=== PATIENT | female | born 1980 | race African-American/Black ===

== ENCOUNTER 2018-11-16 10:40 | Emergency (ER) | payer OTHER ==
--- NOTE | 2018-11-16 12:46 | ED ---
Skin/Abscess/FB HPI - General Chief complaint: Skin/Abscess/Foreign Body Stated complaint: Infection Time Seen by Provider: 11/16/18 12:26 Source: patient, RN notes reviewed Mode of arrival: ambulatory Limitations: no limitations - History of Present Illness Initial comments: 38-year-old female presents emergency from chief complaint rash on her face. Patient has been trying to treat this at home with multiple [id number] medications, home remedies. Patient states that there is small to large size pimples. Patient states they were painful and initially started but has improved. Patient denies any history of skin infections including MRSA or VRE. Patient offers no fevers or chills. Patient offers no other associated complaints. - Related Data Previous Rx's Medication Instructions Recorded Benzoyl Peroxide [Panoxyl] 1 applic TOPICAL BID #10 gm 11/16/18 Cephalexin [Keflex] 500 mg PO Q6HR #40 cap 11/16/18 Allergies Allergy/AdvReac Type Severity Reaction Status Date / Time No Known Allergies Allergy Verified 11/16/18 11:51 Review of Systems ROS Statement: Those systems with pertinent positive or pertinent negative responses have been documented in the HPI. ROS Other: All systems not noted in ROS Statement are negative. Past Medical History Past Medical History: Hypertension History of Any Multi-Drug Resistant Organisms: None Reported Past Surgical History: No Surgical Hx Reported Past Psychological History: No Psychological Hx Reported Smoking Status: Current every day smoker Past Alcohol Use History: Occasional Past Drug Use History: Marijuana General Exam Limitations: no limitations General appearance: alert, in no apparent distress Head exam: Present: atraumatic, normocephalic, normal inspection Eye exam: Present: normal appearance, PERRL, EOMI. Absent: scleral icterus, conjunctival injection, periorbital swelling ENT exam: Present: normal exam, normal oropharynx, mucous membranes moist, TM's normal bilaterally Neck exam: Present: normal inspection. Absent: tenderness, meningismus, lymphadenopathy Respiratory exam: Present: normal lung sounds bilaterally. Absent: respiratory distress, wheezes, rales, rhonchi, stridor Cardiovascular Exam: Present: regular rate, normal rhythm, normal heart sounds. Absent: systolic murmur, diastolic murmur, rubs, gallop, clicks Skin exam: Present: warm, dry, intact, normal color, rash (Diffuse small to large ascites papule and pustules noted on the forehead, cheek region) Course Vital Signs 11/16/18 11:48 Temperature 98.2 F Pulse Rate 62 Respiratory 18 Rate Blood Pressure 162/71 O2 Sat by Pulse 100 Oximetry Medical Decision Making - Medical Decision Making 38-year-old female presented for rash her face. This is more consistent with cystic acne. Patient provided Benzoyl peroxide, prescription of Keflex as she states that she may have symptoms of some to doxycycline. Patient will be followed up with dermatology return for any worsening symptoms. Disposition Clinical Impression: Cystic acne Disposition: HOME SELF-CARE Condition: Stable Instructions (If sedation given, give patient instructions): Benzoyl Peroxide (On the skin) Additional Instructions: Please return to the Emergency Department if symptoms worsen or any other concerns. Prescriptions: Cephalexin [Keflex] 500 mg PO Q6HR #40 cap Benzoyl Peroxide [Panoxyl] 1 applic TOPICAL BID #10 gm Is patient prescribed a controlled substance at d/c from ED?: No Referrals: Nonstaff,Physician [Primary Care Provider] - 1-2 days Time of Disposition: 12:45
[2018-11-16 12:57] VITALS: BP 165/78; PULSE 67; RESP 16; TEMP 98.6
== END 2018-11-16 12:56 | disposition home or self-care (01) ==
LOC: EC 10:40
DX: L70.0 Acne vulgaris (principal); F17.200 Nicotine dependence, unspecified, uncomplicated
CPT/HCPCS: 99282

== ENCOUNTER 2020-08-18 12:16 | Observation (INO) | payer OTHER ==
--- NOTE | 2020-08-18 13:35 | ED ---
General Adult HPI - General Source: patient, RN notes reviewed Mode of arrival: ambulatory Limitations: no limitations <Salo Woods - Last Filed: 08/18/20 16:48> <Shreya Bonner - Last Filed: 08/21/20 14:14> - General Chief complaint: Vaginal Bleeding Stated complaint: Feeling Faint Time Seen by Provider: 08/18/20 12:21 - History of Present Illness Initial comments: 39-year-old female with a past medical history of anemia, hypertension presents to the emergency room for vaginal bleeding. Patient states she has had vaginal bleeding times one week. Patient states this is heavier than her normal.. States this has happened several times in the past. One time she did require a blood transfusion. Patient states that at work today she felt a little lightheaded and was concerned it could be because of the bleeding. Patient denies syncopal episodes. She is feeling well at this time although does feel a little fatigued. States the bleeding has been slowing down throughout the week.Patient has no other complaints at this time including shortness of breath, chest pain, abdominal pain, nausea or vomiting, headache, or visual changes. (Salo Woods) - Related Data Home Medications Medication Instructions Recorded Confirmed Losartan [Cozaar] 25 mg PO DAILY 08/18/20 08/18/20 Allergies Allergy/AdvReac Type Severity Reaction Status Date / Time No Known Allergies Allergy Verified 08/18/20 17:01 Review of Systems ROS Other: All systems not noted in ROS Statement are negative. <Salo Woods - Last Filed: 08/18/20 16:48> ROS Other: All systems not noted in ROS Statement are negative. <Shreya Bonner - Last Filed: 08/21/20 14:14> ROS Statement: Those systems with pertinent positive or pertinent negative responses have been documented in the HPI. Past Medical History Past Medical History: Hypertension Additional Past Medical History / Comment(s): anemia History of Any Multi-Drug Resistant Organisms: None Reported Past Surgical History: No Surgical Hx Reported Past Psychological History: No Psychological Hx Reported Smoking Status: Current every day smoker Past Alcohol Use History: Occasional Past Drug Use History: Marijuana <Salo Woods - Last Filed: 08/18/20 16:48> General Exam Limitations: no limitations General appearance: alert, in no apparent distress Head exam: Present: atraumatic, normocephalic, normal inspection Eye exam: Present: normal appearance, PERRL, EOMI. Absent: scleral icterus, conjunctival injection, periorbital swelling ENT exam: Present: normal exam, mucous membranes moist Neck exam: Present: normal inspection, full ROM. Absent: tenderness, meningismus, lymphadenopathy Respiratory exam: Present: normal lung sounds bilaterally. Absent: respiratory distress, wheezes, rales, rhonchi, stridor Cardiovascular Exam: Present: regular rate, normal rhythm, normal heart sounds. Absent: systolic murmur, diastolic murmur, rubs, gallop, clicks GI/Abdominal exam: Present: soft, normal bowel sounds. Absent: distended, tenderness, guarding, rebound, rigid External exam: Present: normal external exam. Absent: erythema, swelling, lesions, lacerations, ecchymosis Speculum exam: Present: vaginal bleeding (Small clot noted. minimal vaginal bleeding on time of exam.). Absent: normal speculum exam, erythema, vaginal discharge, cervical discharge, foreign body, tissue, laceration By manual exam: Present: normal by manual exam. Absent: cervical motion tenderness, adnexal tenderness, adnexal mass, uterine enlargement, uterine tenderness <Salo Woods P - Last Filed: 08/18/20 16:48> Course Vital Signs 08/18/20 08/18/20 08/18/20 12:18 15:38 16:12 Temperature 97.9 F 97.8 F Pulse Rate 69 84 77 Respiratory 18 18 16 Rate Blood Pressure 149/78 153/77 159/84 O2 Sat by Pulse 100 90 L 100 Oximetry 08/18/20 08/18/20 16:22 16:52 Temperature 98.7 F 98.7 F Pulse Rate 68 70 Respiratory 16 16 Rate Blood Pressure 168/107 181/99 O2 Sat by Pulse 100 100 Oximetry Medical Decision Making - Lab Data Result diagrams: 08/18/20 14:30 08/18/20 13:32 <Salo Woods - Last Filed: 08/18/20 16:48> - Lab Data Result diagrams: 08/19/20 00:45 08/18/20 13:32 <Shreya Bonner - Last Filed: 08/21/20 14:14> - Medical Decision Making Vitals are stable. Patient did have mild vaginal bleeding on exam however no significant hemorrhage. CBC did reveal hemoglobin which was significantly low at 5.3. No baseline to compare to. Platelet count was not available due to agglutination. I did call lab and they're going to try to pull this from a different blood tube. CMP unremarkable. Urinalysis does show greater than 182 red and white cells. Culture pending. Patient is afebrile with a normal white blood cell count. I suspect white cells are reactive to the red cells however we will give patient a dose of Rocephin until culture does results. 2 units of blood were ordered for patient's significant anemia. Case was discussed with Dr. 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 Recommends repeat CBC about 6 hours after infusion. Recommends low maintenance fluids to keep line open. Patient did have a foul odor on physical exam from the vaginal area. She recommends giving a dose of Flagyl as this could be BV. Trichomonas negative, gonorrhea chlamydia pending. Ultrasound was ordered which shows a simple dominant cyst of the right ovary. There is a 4.9 x 2.3 cm left adnexal you elongated cystic area that could be cyst or hydrosalpinx. No significant pain. Endometrium within normal limits. (Salo Woods) I was available for consultation in the emergency department. The history and physical exam were done by the midlevel provider. I was consulted for this patients care. I reviewed the case with the midlevel provider and based on their presentation of the patient, I agree with the assessment, medical decision making and plan of care as documented. Chart was dictated using [employer] dictation software. Attempts were made to correct any dictation errors however some typographical errors may persist. Patient was seen during a national state of emergency due to the Covid-19 pandemic. (Shreya Bonner) - Lab Data Lab Results 08/18/20 08/18/20 08/18/20 Range/Units 12:58 13:00 13:00 WBC (3.8-10.6) k/uL RBC (3.80-5.40) m/uL Hgb (11.4-16.0) gm/dL Hct (34.0-46.0) % MCV (80.0-100.0) fL MCH (25.0-35.0) pg MCHC (31.0-37.0) g/dL RDW (11.5-15.5) % Plt Count (150-450) k/uL MPV Neutrophils % (Manual) % Lymphocytes % (Manual) % Monocytes % (Manual) % Eosinophils % (Manual) % Neutrophils # (Manual) (1.3-7.7) k/uL Lymphocytes # (Manual) (1.0-4.8) k/uL Monocytes # (Manual) (0-1.0) k/uL Eosinophils # (Manual) (0-0.7) k/uL Nucleated RBCs (0-0) /100 WBC Manual Slide Review Toxic Vacuolation Polychromasia Hypochromasia Anisocytosis Microcytosis Target Cells Sodium (137-145) mmol/L Potassium (3.5-5.1) mmol/L Chloride (98-107) mmol/L Carbon Dioxide (22-30) mmol/L Anion Gap mmol/L BUN (7-17) mg/dL Creatinine (0.52-1.04) mg/dL Est GFR (CKD-EPI)AfAm (>60 ml/min/1.73 sqM) Est GFR (CKD-EPI)NonAf (>60 ml/min/1.73 sqM) Glucose (74-99) mg/dL Calcium (8.4-10.2) mg/dL Total Bilirubin (0.2-1.3) mg/dL AST (14-36) U/L ALT (4-34) U/L Alkaline Phosphatase (38-126) U/L Total Protein (6.3-8.2) g/dL Albumin (3.5-5.0) g/dL Urine Color Dark Red Urine Appearance Bloody H (Clear) Urine RBC >182 H (0-5) /hpf Urine WBC >182 H (0-5) /hpf Hyaline Casts 199 H (0-2) /lpf Urine HCG, Qual Not Detected (Not Detectd) Chlamydia Source Chlamydia DNA (PCR) (Neg,Equiv) N. gonorrhoeae Source N.gonorrhoeae DNA Probe (Neg,Equiv) Trichomonas Ag (Rapid) (Negative) Blood Type Blood Type Confirm A Positive Blood Type Recheck Bld Type Recheck Status Antibody Screen Crossmatch Spec Expiration Date 08/18/20 08/18/20 08/18/20 Range/Units 13:00 13:00 13:32 WBC (3.8-10.6) k/uL RBC (3.80-5.40) m/uL Hgb (11.4-16.0) gm/dL Hct (34.0-46.0) % MCV (80.0-100.0) fL MCH (25.0-35.0) pg MCHC (31.0-37.0) g/dL RDW (11.5-15.5) % Plt Count (150-450) k/uL MPV Neutrophils % (Manual) % Lymphocytes % (Manual) % Monocytes % (Manual) % Eosinophils % (Manual) % Neutrophils # (Manual) (1.3-7.7) k/uL Lymphocytes # (Manual) (1.0-4.8) k/uL Monocytes # (Manual) (0-1.0) k/uL Eosinophils # (Manual) (0-0.7) k/uL Nucleated RBCs (0-0) /100 WBC Manual Slide Review Toxic Vacuolation Polychromasia Hypochromasia Anisocytosis Microcytosis Target Cells Sodium 138 (137-145) mmol/L Potassium 3.4 L (3.5-5.1) mmol/L Chloride 103 (98-107) mmol/L Carbon Dioxide 22 (22-30) mmol/L Anion Gap 13 mmol/L BUN 11 (7-17) mg/dL Creatinine 0.77 (0.52-1.04) mg/dL Est GFR (CKD-EPI)AfAm >90 (>60 ml/min/1.73 sqM) Est GFR (CKD-EPI)NonAf >90 (>60 ml/min/1.73 sqM) Glucose 90 (74-99) mg/dL Calcium 9.4 (8.4-10.2) mg/dL Total Bilirubin 0.6 (0.2-1.3) mg/dL AST 50 H (14-36) U/L ALT 13 (4-34) U/L Alkaline Phosphatase 70 (38-126) U/L Total Protein 7.3 (6.3-8.2) g/dL Albumin 4.5 (3.5-5.0) g/dL Urine Color Urine Appearance (Clear) Urine RBC (0-5) /hpf Urine WBC (0-5) /hpf Hyaline Casts (0-2) /lpf Urine HCG, Qual (Not Detectd) Chlamydia Source Vagina Chlamydia DNA (PCR) Negative (Neg,Equiv) N. gonorrhoeae Source Vagina N.gonorrhoeae DNA Probe Negative (Neg,Equiv) Trichomonas Ag (Rapid) Negative (Negative) Blood Type Blood Type Confirm Blood Type Recheck Bld Type Recheck Status Antibody Screen Crossmatch Spec Expiration Date 08/18/20 08/18/20 08/18/20 Range/Units 13:59 14:30 14:30 WBC 6.5 (3.8-10.6) k/uL RBC 3.71 L (3.80-5.40) m/uL Hgb 5.3 L* (11.4-16.0) gm/dL Hct 20.8 L (34.0-46.0) % MCV 56.0 L (80.0-100.0) fL MCH 14.2 L (25.0-35.0) pg MCHC 25.4 L (31.0-37.0) g/dL RDW 18.3 H (11.5-15.5) % Plt Count 339 (150-450) k/uL MPV 6.9 9.9 Neutrophils % (Manual) 73 % Lymphocytes % (Manual) 19 % Monocytes % (Manual) 6 % Eosinophils % (Manual) 2 % Neutrophils # (Manual) 4.75 (1.3-7.7) k/uL Lymphocytes # (Manual) 1.24 (1.0-4.8) k/uL Monocytes # (Manual) 0.39 (0-1.0) k/uL Eosinophils # (Manual) 0.13 (0-0.7) k/uL Nucleated RBCs 1 H (0-0) /100 WBC Manual Slide Review Performed Toxic Vacuolation Present Polychromasia Present Hypochromasia Marked Anisocytosis Slight Microcytosis Marked Target Cells Present Sodium (137-145) mmol/L Potassium (3.5-5.1) mmol/L Chloride (98-107) mmol/L Carbon Dioxide (22-30) mmol/L Anion Gap mmol/L BUN (7-17) mg/dL Creatinine (0.52-1.04) mg/dL Est GFR (CKD-EPI)AfAm (>60 ml/min/1.73 sqM) Est GFR (CKD-EPI)NonAf (>60 ml/min/1.73 sqM) Glucose (74-99) mg/dL Calcium (8.4-10.2) mg/dL Total Bilirubin (0.2-1.3) mg/dL AST (14-36) U/L ALT (4-34) U/L Alkaline Phosphatase (38-126) U/L Total Protein (6.3-8.2) g/dL Albumin (3.5-5.0) g/dL Urine Color Urine Appearance (Clear) Urine RBC (0-5) /hpf Urine WBC (0-5) /hpf Hyaline Casts (0-2) /lpf Urine HCG, Qual (Not Detectd) Chlamydia Source Chlamydia DNA (PCR) (Neg,Equiv) N. gonorrhoeae Source N.gonorrhoeae DNA Probe (Neg,Equiv) Trichomonas Ag (Rapid) (Negative) Blood Type A Positive Blood Type Confirm Blood Type Recheck No Previous Record Bld Type Recheck Status CABO Indicated Antibody Screen NEGATIVE Crossmatch See Detail Spec Expiration Date 08/21/20202329 Disposition Is patient prescribed a controlled substance at d/c from ED?: No Time of Disposition: 16:51 <Salo Woods P - Last Filed: 08/18/20 16:48> <Shreya Bonner - Last Filed: 08/21/20 14:14> Clinical Impression: Dysfunctional uterine bleeding, Anemia Disposition: ADMITTED IP TO THIS HOSP Condition: Good
[2020-08-18 13:48] LABS: ALT 13 U/L (4-34); AST 50 U/L (14-36); African American GFR (CKD) >90 (>60 ml/min/1.73 sqM); Albumin 4.5 g/dL (3.5-5.0); Alkaline Phosphatase 70 U/L (38-126); Anion Gap 13 mmol/L; Blood Urea Nitrogen 11 mg/dL (7-17); Calcium 9.4 mg/dL (8.4-10.2); Carbon Dioxide 22 mmol/L (22-30); Chloride 103 mmol/L (98-107); Glucose 90 mg/dL (74-99); Non-African American GFR(CKD) >90 (>60 ml/min/1.73 sqM); Potassium 3.4 mmol/L (3.5-5.1); Sodium 138 mmol/L (137-145); Total Bilirubin 0.6 mg/dL (0.2-1.3); Total Protein 7.3 g/dL (6.3-8.2)
[2020-08-18 13:54] LABS: Hyaline Casts,Urine 199 /lpf (0-2); RBC,Urine >182 /hpf (0-5); WBC,Urine >182 /hpf (0-5)
[2020-08-18 13:56] LABS: Appearance,Urine Bloody (Clear); Color,Urine Dark Red
[2020-08-18 14:07] LABS: Anisocytosis Slight; HCT 20.8 % (34.0-46.0); Hypochromasia Marked; MCH 14.2 pg (25.0-35.0); MCHC 25.4 g/dL (31.0-37.0); Mean Platelet Volume 6.9; Microcytosis Marked; RBC 3.71 m/uL (3.80-5.40); RDW 18.3 % (11.5-15.5)
[2020-08-18 14:09] LABS: HGB 5.3 gm/dL (11.4-16.0)
[2020-08-18 14:57] LABS: Eosinophils # (M) 0.13 k/uL (0-0.7); Neutrophils % (M) 73 %; Nucleated Red Blood Cells 1 /100 WBC (0-0); Total Cells Counted 200
[2020-08-18 14:58] LABS: Lymphocytes # (M) 1.24 k/uL (1.0-4.8); Monocytes # (M) 0.39 k/uL (0-1.0); Neutrophils # (M) 4.75 k/uL (1.3-7.7); Toxic Vacuolation Present; WBC 6.5 k/uL (3.8-10.6)
[2020-08-18 14:59] LABS: Polychromasia Present; Target Cells Present
[2020-08-18 16:13] VITALS: RESP 16
--- NOTE | 2020-08-18 16:16 | US ---
EXAMINATION TYPE: US transvaginal DATE OF EXAM: 08/18/2020 COMPARISON: NONE CLINICAL HISTORY: bleedimg, anemia. TECHNIQUE: Transvaginal (TV). Date of LMP: 08/13/2020 EXAM MEASUREMENTS: Uterus: 8.6 x 4.8 x 6.2 cm Endometrial Stripe: 0.9 cm Right Ovary: 3.4 x 2.0 x 2.7 cm Left Ovary: 4.9 x 2.3 x 3.1 cm 1. Uterus: Anteverted wnl 2. Endometrium: wnl 3. Right Ovary: cyst measures 2.8 x 1.8 x 2.3 cm 4. Left Ovary: Cystic structure is presumed to be ovary, there appears to be an ovarian rind with v ascular flow. Spectral, color and waveform doppler imaging shows good arterial and venous flow within the ovaries ; there is no evidence for ovarian torsion. 5. Bilateral Adnexa: wnl 6. Posterior cul-de-sac: no free fluid IMPRESSION: There is simple dominant cyst on the right ovary. There is 4.9 x 2.3 cm left adnexal elongated cystic area. This could be ovarian cyst or hydrosalpinx. No solid adnexal mass. No evidence of ovarian tors ion.
[2020-08-18] MEDS ORDERED: SODIUM CHLORIDE 0.9% 1,000 ML IV STA (16:30)
[2020-08-18 16:45] LABS: Mean Platelet Volume 9.9; Platelet Count 339 k/uL (150-450)
[2020-08-18] MEDS ORDERED: metroNIDAZOLE-NS PMX 500 MG in SALINE 1 100ML.BAG IVPB STA (16:47)
[2020-08-18] MEDS ORDERED: cefTRIAXone IN SWFI 1,000 MG/10 ML SYRINGE IVP STA (16:50)
[2020-08-18] MEDS ORDERED: NALOXONE 0.4 MG/ML 1 ML VIAL IV PRN (16:53)
[2020-08-18] MEDS ORDERED: SODIUM CHLORIDE 0.9% 1,000 ML IV SCH (17:00)
[2020-08-19 03:02] LABS: Anisocytosis Marked; Basophils # (A) 0.1 k/uL (0-0.2); Basophils % (A) 1 %; Eosinophils # (A) 0.1 k/uL (0-0.7); Eosinophils % (A) 2 %; HCT 30.4 % (34.0-46.0); Hypochromasia Marked; Lymphocytes # (A) 1.8 k/uL (1.0-4.8); Lymphocytes % (A) 20 %; MCH 19.5 pg (25.0-35.0); MCHC 29.1 g/dL (31.0-37.0); Mean Platelet Volume 8.5; Microcytosis Marked; Monocytes # (A) 0.9 k/uL (0-1.0); Monocytes % (A) 9 %; Neutrophils # (A) 6.1 k/uL (1.3-7.7); Neutrophils % (A) 66 %; Platelet Count 238 k/uL (150-450); Poikilocytosis Marked; RBC 4.55 m/uL (3.80-5.40); WBC 9.2 k/uL (3.8-10.6)
[2020-08-19 03:08] LABS: HGB 8.9 gm/dL (11.4-16.0)
[2020-08-19 03:09] LABS: MCV 66.9 fL (80.0-100.0)
[2020-08-19 04:29] VITALS: PULSE 49; TEMP 97.7
[2020-08-19 04:34] VITALS: BP 178/87
--- NOTE | 2020-08-19 08:41 | P.HPOB ---
History of Present Illness H&P Date: 08/19/20 Chief Complaint: Menorrhagia, severe anemia This is a 39-year-old non patient that presented to the emergency department last evening with complaints of heavy menstrual bleeding with clots. Patient has a known history of anemia with a prior transfusion Abundio for years ago. On initial CBC patient was noted to be significantly anemic with a hemoglobin of 5.3. Patient was given 2 units of packed red blood cells, and admitted for observation. Patient states she has a history of heavier menstrual cycles. Menstrual cycles are noted to be every 30 days lasting proximal laced 7 days. This last period started about 7 days ago. She states she was about a week late and then started with clots. Patient does have a past medical history of hypertension for which she is on medication. Patient denies surgical history. This a.m. patient states her bleeding has slowed significantly and she is feeling much improved. Patient denies dizziness lightheadedness she is able to ambulate to the bathroom without difficulty. Review of Systems Constitutional: Reports as per HPI, Reports fatigue, Denies chills, Denies fever Ears, nose, mouth and throat: Denies headache Cardiovascular: Denies leg edema Respiratory: Denies dyspnea Gastrointestinal: Denies constipation, Denies diarrhea, Denies nausea, Denies vomiting Genitourinary: Reports abnormal vaginal bleeding, Reports menorrhagia, Denies dysmenorrhea, Denies Menstruation: Reports as per HPI Past Medical History Past Medical History: Hypertension Additional Past Medical History / Comment(s): anemia History of Any Multi-Drug Resistant Organisms: None Reported Past Surgical History: No Surgical Hx Reported Past Anesthesia/Blood Transfusion Reactions: No Reported Reaction Past Psychological History: No Psychological Hx Reported Smoking Status: Current every day smoker Past Alcohol Use History: Occasional Past Drug Use History: Marijuana Medications and Allergies Home Medications Medication Instructions Recorded Confirmed Type Losartan [Cozaar] 25 mg PO DAILY 08/18/20 08/18/20 History Allergies Allergy/AdvReac Type Severity Reaction Status Date / Time No Known Allergies Allergy Verified 08/18/20 17:01 Exam Osteopathic Statement: *. No significant issues noted on an osteopathic structural exam other than those noted in the History and Physical/Consult. Vital Signs Temp Pulse Pulse Resp BP BP Pulse Ox 08/19/20 04:34 178/87 08/19/20 04:28 97.7 F 49 L 16 194/103 100 08/18/20 22:41 71 16 176/102 100 08/18/20 20:38 77 179/94 08/18/20 20:28 98.0 F 69 16 186/98 08/18/20 20:16 98.5 F 68 16 189/98 08/18/20 20:13 98.5 F 68 16 189/98 97 08/18/20 16:52 98.7 F 70 16 181/99 100 08/18/20 16:22 98.7 F 68 16 168/107 100 08/18/20 16:12 97.8 F 77 16 159/84 100 08/18/20 15:38 84 18 153/77 90 L 08/18/20 12:18 97.9 F 69 18 149/78 100 Intake and Output 08/18/20 08/19/20 08/19/20 22:59 06:59 14:59 Intake Total 740 590 Balance 740 590 Intake: Oral 120 590 Blood Product 620 As-1 Unit 310 [id number] As-1 Unit 310 [id number] Other: Voiding Method Toilet # Voids 2 Weight 53.977 kg 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 Vaginal exam is deferred as she had an ultrasound last evening and states her bleeding has improved. She also underwent a speculum exam in the emergency department which revealed minimal bleeding small amount of clots per the PA saw her downstairs. Results Result Diagrams: 08/19/20 00:45 08/18/20 13:32 Abnormal Lab Results - Last 24 Hours (Table) 08/18/20 08/18/20 08/18/20 Range/Units 13:00 13:32 13:59 RBC 3.71 L (3.80-5.40) m/uL Hgb 5.3 L* (11.4-16.0) gm/dL Hct 20.8 L (34.0-46.0) % MCV 56.0 L (80.0-100.0) fL MCH 14.2 L (25.0-35.0) pg MCHC 25.4 L (31.0-37.0) g/dL RDW 18.3 H (11.5-15.5) % Nucleated RBCs 1 H (0-0) /100 WBC Potassium 3.4 L (3.5-5.1) mmol/L AST 50 H (14-36) U/L Urine Appearance Bloody H (Clear) Urine RBC >182 H (0-5) /hpf Urine WBC >182 H (0-5) /hpf Hyaline Casts 199 H (0-2) /lpf Crossmatch 08/18/20 08/19/20 Range/Units 14:30 00:45 RBC (3.80-5.40) m/uL Hgb 8.9 L D (11.4-16.0) gm/dL Hct 30.4 L (34.0-46.0) % MCV 66.9 L D (80.0-100.0) fL MCH 19.5 L (25.0-35.0) pg MCHC 29.1 L (31.0-37.0) g/dL RDW 25.0 H (11.5-15.5) % Nucleated RBCs (0-0) /100 WBC Potassium (3.5-5.1) mmol/L AST (14-36) U/L Urine Appearance (Clear) Urine RBC (0-5) /hpf Urine WBC (0-5) /hpf Hyaline Casts (0-2) /lpf Crossmatch See Detail Microbiology - Last 24 Hours (Table) 08/18/20 13:00 Urine Culture - Preliminary Urine,Voided 08/18/20 13:00 Genital Culture - Preliminary Vaginal Assessment and Plan (1) Anemia Current Visit: Yes Status: Acute Code(s): D64.9 - ANEMIA, UNSPECIFIED SNOMED Code(s): 197244405 (2) Dysfunctional uterine bleeding Current Visit: Yes Status: Acute Code(s): N93.8 - OTHER SPECIFIED ABNORMAL UTERINE AND VAGINAL BLEEDING SNOMED Code(s): 76727298599544 Plan: This pleasant 39-year-old -[place] non patient was admitted for observation overnight status post 2 units of packed red blood cells. Patient states this morning her bleeding has improved significantly and her hemoglobin has improved to 8.9. Ultrasound is reviewed. Discussed oh patient follow-up with questionable Mirena versus endometrial ablation given her heavy menstrual bleeding and anemia. Patient is asked to follow-up in the office in 1-2 weeks for an annual exam or we had we will address these issues.
--- NOTE | 2020-08-19 08:44 | P.DS ---
Providers Date of admission: 08/18/20 16:53 Expected date of discharge: 08/19/20 Attending physician: Amanda Dumont Primary care physician: Stated None - Discharge Diagnosis(es) (1) Anemia Current Visit: Yes Status: Acute (2) Dysfunctional uterine bleeding Current Visit: Yes Status: Acute Hospital Course: This 39-year-old non patient admitted to the hospital last evening. 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 Upon presentation to the hospital hemoglobin was noted to be 5.3. Patient was given 2 units of packed red blood cells and this morning the hemoglobin has improved to 8.9. Patient is feeling well this morning. She states her bleeding has significantly decreased. Patient has a history of transfusion for years ago secondary to bleeding as well. In addition patient states she has a known history of anemia they were unsure why years ago and it was unrelated to menstrual bleeding. Patient did undergo ultrasound evaluation of the pelvis which revealed a normal-appearing uterus at 8 cm x 4 cm x 4 cm the endometrial lining was within normal limits at 0.9 cm. The left ovary did have a cystic structure question will hydrosalpinx versus simple ovarian cyst. There was no free fluid in the pelvis. It is been many years since the patient's last annual exam. Patient Condition at Discharge: Good Plan - Discharge Summary Discharge Rx Participant: Yes New Discharge Prescriptions: No Action Losartan [Cozaar] 25 mg PO DAILY Discharge Medication List Losartan [Cozaar] 25 mg PO DAILY 08/18/20 [History] Follow up Appointment(s)/Referral(s): None,Stated [Primary Care Provider] - 1-2 days Amanda Dumont DO [Doctor of Osteopathic Medicine] - 1 Week Activity/Diet/Wound Care/Special Instructions: Patient is encouraged to find [id number] iron supplement 325 to take daily with orange juice. Patient is asked to follow up with myself at [facility] in 1-2 weeks for annual exam where we will address her menorrhagia issues. Patient is to call the office to schedule this appointment. Discharge Disposition: HOME SELF-CARE
[2020-08-21 12:29] LABS: C. trachomatis,PCR Negative (Neg,Equiv); Chlamydia trachomatis Source Vagina; N. gonorrhoeae,PCR Negative (Neg,Equiv); Neisseria Source Vagina
== END 2020-08-19 09:34 | disposition home or self-care (01) ==
LOC: EC 12:16 → 5NMEDONC 16:53
PROVIDERS: ADMIT Obstetrics & Gynecology Obstetrics; ATTEND Obstetrics & Gynecology Obstetrics
DX: N93.9 Abnormal uterine and vaginal bleeding, unspecified (principal); D64.9 Anemia, unspecified; F17.200 Nicotine dependence, unspecified, uncomplicated; I10 Essential (primary) hypertension; N92.0 Excessive and frequent menstruation with regular cycle; N93.8 Other specified abnormal uterine and vaginal bleeding; N83.201 Unspecified ovarian cyst, right side; Z79.899 Other long term (current) drug therapy; Z20.822 Contact with and (suspected) exposure to COVID-19
CPT/HCPCS: 36430 ×2; 96365; 96375; 99285; 36415; 86900; 86901; 80053; 85025 ×2; 85049; 86850; 86920; 81001; 81025; 87808; 87491; 87591; 87070; 87086; 87635; 93975; 76830; G0378 ×2; P9016; J0696

== ENCOUNTER 2021-04-12 11:10 | Emergency (ER) | payer OTHER ==
[2021-04-12 11:17] VITALS: RESP 18; TEMP 97.2
[2021-04-12] MEDS ORDERED: SODIUM CHLORIDE 0.9% 2,000 ML IV STA (11:34)
[2021-04-12] MEDS ORDERED: ONDANSETRON 4 MG/2 ML VIAL IVP STA (11:35)
[2021-04-12] MEDS ORDERED: MORPHINE SULFATE 4 MG/ML SYRINGE IVP STA (11:35)
--- NOTE | 2021-04-12 11:41 | ED ---
General Adult HPI - General Chief complaint: Abdominal Pain Stated complaint: Abdominal Pain Time Seen by Provider: 04/12/21 11:24 Source: patient, EMS Mode of arrival: EMS - History of Present Illness Initial comments: 40-year-old female with a possible history of hypertension presents to the emergency room for a chief related of abdominal pain. Patient states she had mid abdominal pain starting this morning. Patient states she is having nausea vomiting but she feels this is more related to the pain. However she is also having diarrhea. She denies fevers or chills.Patient has no other complaints at this time including shortness of breath, chest pain, abdominal pain, nausea or vomiting, headache, or visual changes. - Related Data Home Medications Medication Instructions Recorded Confirmed Losartan [Cozaar] 100 mg PO DAILY 08/18/20 04/12/21 Previous Rx's Medication Instructions Recorded Dicyclomine [Bentyl] 20 mg PO TID PRN #20 tablet 04/12/21 Ondansetron [Zofran ODT] 4 mg PO Q8HR PRN #15 tab 04/12/21 Allergies Allergy/AdvReac Type Severity Reaction Status Date / Time No Known Allergies Allergy Verified 08/18/20 17:01 Review of Systems ROS Statement: Those systems with pertinent positive or pertinent negative responses have been documented in the HPI. ROS Other: All systems not noted in ROS Statement are negative. Past Medical History Past Medical History: Hypertension Additional Past Medical History / Comment(s): anemia History of Any Multi-Drug Resistant Organisms: None Reported Past Surgical History: No Surgical Hx Reported Past Anesthesia/Blood Transfusion Reactions: No Reported Reaction Past Psychological History: No Psychological Hx Reported Smoking Status: Current every day smoker Past Alcohol Use History: Occasional Past Drug Use History: Marijuana General Exam General appearance: alert, in no apparent distress Head exam: Present: atraumatic Eye exam: Present: normal appearance, PERRL, EOMI. Absent: scleral icterus, conjunctival injection ENT exam: Present: normal exam, mucous membranes moist Neck exam: Present: normal inspection, full ROM. Absent: tenderness Respiratory exam: Present: normal lung sounds bilaterally. Absent: respiratory distress, wheezes Cardiovascular Exam: Present: regular rate, normal rhythm, normal heart sounds GI/Abdominal exam: Present: soft, tenderness (mid lower abdominal tenderness), normal bowel sounds. Absent: distended External exam: Present: normal external exam. Absent: erythema, swelling, lesions, lacerations, ecchymosis Speculum exam: Present: normal speculum exam. Absent: erythema, vaginal discharge, cervical discharge, vaginal bleeding, foreign body, tissue, laceration By manual exam: Present: normal by manual exam. Absent: cervical motion tenderness, adnexal tenderness, adnexal mass, uterine enlargement, uterine tenderness Course Vital Signs 04/12/21 04/12/21 04/12/21 11:12 12:34 12:48 Temperature 97.2 F L Pulse Rate 84 76 Respiratory 18 18 Rate Blood Pressure 175/120 178/130 169/90 O2 Sat by Pulse 95 95 Oximetry Medical Decision Making - Medical Decision Making Vitals are stable. Patient is well-appearing. Patient does have generalized abdominal tenderness. Laboratory evaluation was obtained which did reveal a white count of 19.5. CMP did show slight hypokalemia, will be replaced orally. Urinalysis is negative. Covid is negative. Given white count CT was obtained which showed an ovarian cyst otherwise unremarkable. Pelvic exam was performed without any evidence of infection. Cultures pending. Patient denies any c oncern for STDs. White count likely related to vomiting and diarrhea. Patient likely striking symptoms of gastrointestinal infection. Will be discharged home with antiemetics and Bentyl. Will follow up with primary care. - Lab Data Result diagrams: 04/12/21 12:47 04/12/21 11:57 Lab Results 04/12/21 04/12/21 04/12/21 Range/Units 11:57 11:59 11:59 WBC (3.8-10.6) k/uL RBC (3.80-5.40) m/uL Hgb (11.4-16.0) gm/dL Hct (34.0-46.0) % MCV (80.0-100.0) fL MCH (25.0-35.0) pg MCHC (31.0-37.0) g/dL RDW (11.5-15.5) % Plt Count (150-450) k/uL MPV Neutrophils % % Lymphocytes % % Monocytes % % Eosinophils % % Basophils % % Neutrophils # (1.3-7.7) k/uL Lymphocytes # (1.0-4.8) k/uL Monocytes # (0-1.0) k/uL Eosinophils # (0-0.7) k/uL Basophils # (0-0.2) k/uL Hypochromasia Anisocytosis Microcytosis Sodium 140 (137-145) mmol/L Potassium 2.9 L (3.5-5.1) mmol/L Chloride 106 (98-107) mmol/L Carbon Dioxide 23 (22-30) mmol/L Anion Gap 11 mmol/L BUN 9 (7-17) mg/dL Creatinine 0.55 (0.52-1.04) mg/dL Est GFR (CKD-EPI)AfAm >90 (>60 ml/min/1.73 sqM) Est GFR (CKD-EPI)NonAf >90 (>60 ml/min/1.73 sqM) Glucose 113 H (74-99) mg/dL Plasma Lactic Acid Teddy (0.7-2.0) mmol/L Calcium 8.9 (8.4-10.2) mg/dL Total Bilirubin 0.5 (0.2-1.3) mg/dL AST 35 (14-36) U/L ALT 16 (4-34) U/L Alkaline Phosphatase 79 (38-126) U/L Total Protein 7.9 (6.3-8.2) g/dL Albumin 4.7 (3.5-5.0) g/dL Amylase 74 (30-110) U/L Lipase 35 (23-300) U/L HCG, Qual Not Detected Urine Color Light Yellow Urine Appearance Clear (Clear) Urine pH 8.0 (5.0-8.0) Ur Specific [place] 1.010 (1.001-1.035) Urine Protein Trace H (Negative) Urine Glucose (UA) Negative (Negative) Urine Ketones Trace H (Negative) Urine Blood Negative (Negative) Urine Nitrite Negative (Negative) Urine Bilirubin Negative (Negative) Urine Urobilinogen <2.0 (<2.0) mg/dL Ur Leukocyte Esterase Negative (Negative) Urine HCG, Qual Not Detected (Not Detectd) Coronavirus (PCR) (Not Detectd) 04/12/21 04/12/21 04/12/21 Range/Units 11:59 11:59 12:47 WBC 19.5 H (3.8-10.6) k/uL RBC 4.70 (3.80-5.40) m/uL Hgb 9.5 L (11.4-16.0) gm/dL Hct 33.1 L (34.0-46.0) % MCV 70.5 L (80.0-100.0) fL MCH 20.1 L (25.0-35.0) pg MCHC 28.5 L (31.0-37.0) g/dL RDW 18.7 H (11.5-15.5) % Plt Count 355 (150-450) k/uL MPV 7.5 Neutrophils % 88 % Lymphocytes % 4 % Monocytes % 6 % Eosinophils % 0 % Basophils % 0 % Neutrophils # 17.2 H (1.3-7.7) k/uL Lymphocytes # 0.7 L (1.0-4.8) k/uL Monocytes # 1.1 H (0-1.0) k/uL Eosinophils # 0.1 (0-0.7) k/uL Basophils # 0.1 (0-0.2) k/uL Hypochromasia Marked Anisocytosis Slight Microcytosis Marked Sodium (137-145) mmol/L Potassium (3.5-5.1) mmol/L Chloride (98-107) mmol/L Carbon Dioxide (22-30) mmol/L Anion Gap mmol/L BUN (7-17) mg/dL Creatinine (0.52-1.04) mg/dL Est GFR (CKD-EPI)AfAm (>60 ml/min/1.73 sqM) Est GFR (CKD-EPI)NonAf (>60 ml/min/1.73 sqM) Glucose (74-99) mg/dL Plasma Lactic Acid Teddy 1.7 (0.7-2.0) mmol/L Calcium (8.4-10.2) mg/dL Total Bilirubin (0.2-1.3) mg/dL AST (14-36) U/L ALT (4-34) U/L Alkaline Phosphatase (38-126) U/L Total Protein (6.3-8.2) g/dL Albumin (3.5-5.0) g/dL Amylase (30-110) U/L Lipase (23-300) U/L HCG, Qual Urine Color Urine Appearance (Clear) Urine pH (5.0-8.0) Ur Specific [place] (1.001-1.035) Urine Protein (Negative) Urine Glucose (UA) (Negative) Urine Ketones (Negative) Urine Blood (Negative) Urine Nitrite (Negative) Urine Bilirubin (Negative) Urine Urobilinogen (<2.0) mg/dL Ur Leukocyte Esterase (Negative) Urine HCG, Qual (Not Detectd) Coronavirus (PCR) Not Detected (Not Detectd) Disposition Clinical Impression: Abdominal pain, Nausea vomiting and diarrhea Disposition: HOME SELF-CARE Condition: Good Instructions (If sedation given, give patient instructions): Abdominal Pain (ED) Additional Instructions: Please follow up with primary care. Take medications as directed. Return to the emergency room for any worsening symptoms. Prescriptions: Dicyclomine [Bentyl] 20 mg PO TID PRN #20 tablet PRN Reason: abdominal pain Ondansetron [Zofran ODT] 4 mg PO Q8HR PRN #15 tab PRN Reason: Nausea Is patient prescribed a controlled substance at d/c from ED?: No Referrals: Pita Matos MD [STAFF PHYSICIAN] - 1-2 days Time of Disposition: 15:23
[2021-04-12 12:30] LABS: ALT 16 U/L (4-34); AST 35 U/L (14-36); African American GFR (CKD) >90 (>60 ml/min/1.73 sqM); Albumin 4.7 g/dL (3.5-5.0); Alkaline Phosphatase 79 U/L (38-126); Amylase 74 U/L (30-110); Anion Gap 11 mmol/L; Blood Urea Nitrogen 9 mg/dL (7-17); Calcium 8.9 mg/dL (8.4-10.2); Carbon Dioxide 23 mmol/L (22-30); Chloride 106 mmol/L (98-107); Glucose 113 mg/dL (74-99); Lipase 35 U/L (23-300); Non-African American GFR(CKD) >90 (>60 ml/min/1.73 sqM); Potassium 2.9 mmol/L (3.5-5.1); Sodium 140 mmol/L (137-145); Total Bilirubin 0.5 mg/dL (0.2-1.3); Total Protein 7.9 g/dL (6.3-8.2)
[2021-04-12 12:36] LABS: HCG,Qualitative Serum Not Detected
[2021-04-12] MEDS ORDERED: hydrALAZINE HCL 20 MG/ML 1 ML VIAL IVP STA (12:36)
[2021-04-12 12:45] LABS: Appearance,Urine Clear (Clear); Bilirubin,Urine Negative (Negative); Blood,Urine Negative (Negative); Color,Urine Light Yellow; Glucose,Urine (UA) Negative (Negative); Ketones,Urine Trace (Negative); Leukocyte Esterase,Urine Negative (Negative); Nitrite,Urine Negative (Negative); Protein,Urine Trace (Negative); Urobilinogen,Urine <2.0 mg/dL (<2.0)
[2021-04-12 12:59] LABS: Anisocytosis Slight; Basophils # (A) 0.1 k/uL (0-0.2); Basophils % (A) 0 %; Eosinophils # (A) 0.1 k/uL (0-0.7); Eosinophils % (A) 0 %; HCT 33.1 % (34.0-46.0); HGB 9.5 gm/dL (11.4-16.0); Hypochromasia Marked; Lymphocytes # (A) 0.7 k/uL (1.0-4.8); Lymphocytes % (A) 4 %; MCH 20.1 pg (25.0-35.0); MCHC 28.5 g/dL (31.0-37.0); MCV 70.5 fL (80.0-100.0); Mean Platelet Volume 7.5; Microcytosis Marked; Monocytes # (A) 1.1 k/uL (0-1.0); Monocytes % (A) 6 %; Neutrophils # (A) 17.2 k/uL (1.3-7.7); Neutrophils % (A) 88 %; Platelet Count 355 k/uL (150-450); RDW 18.7 % (11.5-15.5); WBC 19.5 k/uL (3.8-10.6)
--- NOTE | 2021-04-12 13:45 | CT ---
EXAMINATION TYPE: CT abdomen pelvis w con DATE OF EXAM: 04/12/2021 COMPARISON: None HISTORY: Abd pain CT DLP: 448.4 mGycm CONTRAST: CT scan of the abdomen and pelvis is performed without Oral Contrast and with IV Contrast, patient in jected with 100 mL of Isovue 300. FINDINGS: LUNG BASES-: No visible nodule. No infiltrate. LIVER/GB: No calcified gallstones. No space occupying hepatic lesion. Biliary tree is of normal ca liber. PANCREAS: No inflammation. No distinct mass. SPLEEN: No splenic enlargement. No lesion seen. ADRENALS: Left adrenal adenoma measuring 2 cm. Right adrenal gland is unremarkable. No thickening. KIDNEYS/BLADDER: No hydronephrosis. No nephrolithiasis. No distinct renal mass. Urinary bladder g rossly unremarkable. BOWEL: Normal appendix. Normal bowel caliber. No inflammation. GENITAL ORGANS: Left ovarian cyst measuring 2.2 cm. The uterus and right ovary are unremarkable. LYMPH NODES: No greater than 1cm abdominal or pelvic lymph nodes are appreciated. AORTA: No significant abnormality. OSSEOUS STRUCTURES: No significant abnormality is seen. OTHER: No significant additional abnormality is seen. IMPRESSION: 1. Left ovarian cyst. 2. Left adrenal adenoma.
[2021-04-12] MEDS ORDERED: LOSARTAN 50 MG TAB PO STA (15:00)
[2021-04-12] MEDS ORDERED: POTASSIUM CHLORIDE ER 20 MEQ TAB.ER PO STA (15:13)
[2021-04-12 15:49] VITALS: BP 179/91; PULSE 89
[2021-04-16 06:48] LABS: C. trachomatis,PCR Negative (Neg,Equiv); Chlamydia trachomatis Source Urine; N. gonorrhoeae,PCR Negative (Neg,Equiv); Neisseria Source Urine
== END 2021-04-12 15:52 | disposition home or self-care (01) ==
LOC: EC 11:10
DX: N83.202 Unspecified ovarian cyst, left side (principal); R11.2 Nausea with vomiting, unspecified; R19.7 Diarrhea, unspecified; I10 Essential (primary) hypertension; F17.200 Nicotine dependence, unspecified, uncomplicated; F12.90 Cannabis use, unspecified, uncomplicated; Z20.822 Contact with and (suspected) exposure to COVID-19
CPT/HCPCS: 99284; 96374; 96375; 96361 ×2; 36415; 80053; 82150; 83605; 83690; 85025; 81003; 81025; 84703; 87808; 87491; 87591; 87070; 87635; 74177; J2270; J2405; Q9967

== ENCOUNTER 2022-06-19 08:27 | Emergency (ER) | payer OTHER ==
[2022-06-19 08:34] VITALS: RESP 18
[2022-06-19] MEDS ORDERED: SODIUM CHLORIDE 0.9% 2,000 ML IV STA (08:39)
[2022-06-19] MEDS ORDERED: METOCLOPRAMIDE 5 MG/ML 2 ML VIAL IVP STA (08:39)
[2022-06-19] MEDS ORDERED: KETOROLAC 15 MG/ML 1 ML VIAL IVP STA (08:39)
[2022-06-19] MEDS ORDERED: diphenhydrAMINE 50 MG/ML 1 ML VIAL IVP STA (08:39)
[2022-06-19 09:09] LABS: Anisocytosis Slight; Basophils # (A) 0.1 k/uL (0-0.2); Basophils % (A) 1 %; Eosinophils % (A) 0 %; HCT 34.2 % (34.0-46.0); HGB 9.9 gm/dL (11.4-16.0); Hypochromasia Marked; Lymphocytes # (A) 0.8 k/uL (1.0-4.8); Lymphocytes % (A) 4 %; MCH 21.2 pg (25.0-35.0); MCHC 29.1 g/dL (31.0-37.0); MCV 72.9 fL (80.0-100.0); Mean Platelet Volume 8.4; Microcytosis Moderate; Monocytes # (A) 1.1 k/uL (0-1.0); Monocytes % (A) 6 %; Neutrophils % (A) 89 %; Platelet Count 258 k/uL (150-450); RBC 4.69 m/uL (3.80-5.40); RDW 17.7 % (11.5-15.5); WBC 19.2 k/uL (3.8-10.6)
[2022-06-19] MEDS ORDERED: HYDROmorphone 0.5 MG/0.5 ML SYRINGE IVP STA (09:11)
[2022-06-19 09:17] LABS: ALT 22 U/L (4-34); AST 41 U/L (14-36); African American GFR (CKD) >90 (>60 ml/min/1.73 sqM); Albumin 5.1 g/dL (3.5-5.0); Alkaline Phosphatase 99 U/L (38-126); Anion Gap 13 mmol/L; Blood Urea Nitrogen 9 mg/dL (7-17); Calcium 9.4 mg/dL (8.4-10.2); Carbon Dioxide 25 mmol/L (22-30); Chloride 107 mmol/L (98-107); Glucose 105 mg/dL (74-99); Lipase 43 U/L (23-300); Non-African American GFR(CKD) >90 (>60 ml/min/1.73 sqM); Potassium 3.4 mmol/L (3.5-5.1); Sodium 145 mmol/L (137-145); Total Bilirubin 0.5 mg/dL (0.2-1.3); Total Protein 8.6 g/dL (6.3-8.2)
[2022-06-19 09:30] LABS: Appearance,Urine Clear (Clear); Bilirubin,Urine Negative (Negative); Blood,Urine Moderate (Negative); Color,Urine Colorless; Glucose,Urine (UA) Negative (Negative); Ketones,Urine Negative (Negative); Leukocyte Esterase,Urine Negative (Negative); Nitrite,Urine Negative (Negative); PH, Urine 7.5 (5.0-8.0); Protein,Urine Negative (Negative); RBC,Urine <1 /hpf (0-5); Specific Gravity,Urine 1.007 (1.001-1.035); Squamous Epithelial Cell,Urine <1 /hpf (0-4); Urobilinogen,Urine <2.0 mg/dL (<2.0); WBC,Urine <1 /hpf (0-5)
--- NOTE | 2022-06-19 10:31 | CT ---
EXAMINATION TYPE: CT abdomen pelvis wo con CT DLP: 360.8 mGycm, Automated exposure control for dose reduction was used. DATE OF EXAM: 06/19/2022 9:49 AM COMPARISON: CT abdomen pelvis most recent from 04/10/2021 CLINICAL INDICATION:Female, 41 years old with history of Abdominal pain, leukocytosis; Abdominal pain , leukocytosis. TECHNIQUE: Axial CT of the abdomen and pelvis. Sagittal and coronal reformats were created on a [employer] workstation. Contrast used: None Oral contrast used: without Oral Contrast FINDINGS: Limited exam without contrast and with motion. LOWER CHEST: Unremarkable ABDOMEN LIVER: Unremarkable GALLBLADDER AND BILE DUCTS: Unremarkable. PANCREAS: Unremarkable. SPLEEN: Unremarkable. ADRENAL GLANDS: Stable left adrenal adenoma. KIDNEYS AND URETERS: No evidence of hydronephrosis or renal calculus. The ureters are unremarkable. PELVIS BLADDER: Unremarkable REPRODUCTIVE: Bilateral ovarian follicle/cystic changes. ABDOMEN & PELVIS STOMACH AND BOWEL: No evidence of bowel obstruction. What is thought to represent the appendix and lo wer quadrant appears normal. PERITONEUM: No evidence of pneumoperitoneum or free fluid. VASCULATURE: No evidence of aortic aneurysm. MUSCULOSKELETAL: No acute osseous abnormalities LYMPH NODES: No gross evidence for lymphadenopathy. SOFT TISSUE/ABDOMINAL WALL: Unremarkable IMPRESSION: 1. Limited noncontrast exam without evidence for acute abdominal process. No evidence of hydronephro sis. The appendix appears normal. 2. Ovarian follicles/cysts.
--- NOTE | 2022-06-19 10:37 | ED ---
General Adult HPI - General Chief complaint: Nausea/Vomiting/Diarrhea Stated complaint: vomiting Time Seen by Provider: 06/19/22 08:28 Source: patient, EMS, RN notes reviewed Mode of arrival: EMS Limitations: no limitations - History of Present Illness Initial comments: This a 41-year-old female presents emergency Department chief complaint of abdominal pain, nausea vomiting. Patient states that she's had In the past feels very similar. She states it's nonlocalized abdominal pain. States that she's had some diarrhea, persistent nausea vomiting throughout the night. Patient denies fevers chills no chest pain or shortness breath no back pain she has no dysuria no vaginal symptoms. - Related Data Home Medications Medication Instructions Recorded Confirmed Losartan [Cozaar] 25 mg PO DAILY 08/18/20 06/19/22 Previous Rx's Medication Instructions Recorded Ibuprofen [Motrin] 600 mg PO Q8HR PRN #20 tab 06/19/22 Ondansetron Odt [Zofran Odt] 4 mg PO Q8HR PRN #10 tab 06/19/22 Allergies Allergy/AdvReac Type Severity Reaction Status Date / Time No Known Allergies Allergy Verified 06/19/22 09:26 Review of Systems ROS Statement: Those systems with pertinent positive or pertinent negative responses have been documented in the HPI. ROS Other: All systems not noted in ROS Statement are negative. Past Medical History Past Medical History: Hypertension Additional Past Medical History / Comment(s): anemia History of Any Multi-Drug Resistant Organisms: None Reported Past Surgical History: No Surgical Hx Reported Past Anesthesia/Blood Transfusion Reactions: No Reported Reaction Past Psychological History: No Psychological Hx Reported Smoking Status: Current every day smoker Past Alcohol Use History: Occasional Past Drug Use History: Marijuana General Exam Limitations: no limitations General appearance: alert, in no apparent distress Head exam: Present: atraumatic, normocephalic, normal inspection Eye exam: Present: normal appearance, PERRL, EOMI. Absent: scleral icterus, conjunctival injection, periorbital swelling Neck exam: Present: normal inspection, full ROM. Absent: tenderness, meningismus, lymphadenopathy Respiratory exam: Present: normal lung sounds bilaterally. Absent: respiratory distress, wheezes, rales, rhonchi, stridor Cardiovascular Exam: Present: regular rate, normal rhythm, normal heart sounds. Absent: systolic murmur, diastolic murmur, rubs, gallop, clicks GI/Abdominal exam: Present: soft, tenderness (Minimal), normal bowel sounds. Absent: distended, guarding, rebound, rigid Back exam: Absent: CVA tenderness (R), CVA tenderness (L) Neurological exam: Present: alert Course Vital Signs 06/19/22 08:28 Temperature 97.5 F L Pulse Rate 88 Respiratory 18 Rate Blood Pressure 175/95 O2 Sat by Pulse 98 Oximetry Medical Decision Making - Medical Decision Making 41-year-old female presented from for abdominal pain nausea vomiting. Patient did have moderate leukocytosis CT is obtained interpreted by me no acute processes follicular changes noted and ovaries, no evidence of appendicitis. Patient improved after antiemetics and fluids. Patient will be discharged in stable condition return parameters were discussed. - Lab Data Result diagrams: 06/19/22 08:41 06/19/22 08:41 Lab Results 06/19/22 06/19/22 06/19/22 Range/Units 08:41 08:41 09:20 WBC 19.2 H (3.8-10.6) k/uL RBC 4.69 (3.80-5.40) m/uL Hgb 9.9 L (11.4-16.0) gm/dL Hct 34.2 (34.0-46.0) % MCV 72.9 L (80.0-100.0) fL MCH 21.2 L (25.0-35.0) pg MCHC 29.1 L (31.0-37.0) g/dL RDW 17.7 H (11.5-15.5) % Plt Count 258 (150-450) k/uL MPV 8.4 Neutrophils % 89 % Lymphocytes % 4 % Monocytes % 6 % Eosinophils % 0 % Basophils % 1 % Neutrophils # 17.0 H (1.3-7.7) k/uL Lymphocytes # 0.8 L (1.0-4.8) k/uL Monocytes # 1.1 H (0-1.0) k/uL Eosinophils # 0.0 (0-0.7) k/uL Basophils # 0.1 (0-0.2) k/uL Hypochromasia Marked Anisocytosis Slight Microcytosis Moderate Sodium 145 (137-145) mmol/L Potassium 3.4 L (3.5-5.1) mmol/L Chloride 107 (98-107) mmol/L Carbon Dioxide 25 (22-30) mmol/L Anion Gap 13 mmol/L BUN 9 (7-17) mg/dL Creatinine 0.68 (0.52-1.04) mg/dL Est GFR (CKD-EPI)AfAm >90 (>60 ml/min/1.73 sqM) Est GFR (CKD-EPI)NonAf >90 (>60 ml/min/1.73 sqM) Glucose 105 H (74-99) mg/dL Calcium 9.4 (8.4-10.2) mg/dL Total Bilirubin 0.5 (0.2-1.3) mg/dL AST 41 H (14-36) U/L ALT 22 (4-34) U/L Alkaline Phosphatase 99 (38-126) U/L Total Protein 8.6 H (6.3-8.2) g/dL Albumin 5.1 H (3.5-5.0) g/dL Lipase 43 (23-300) U/L Urine Color Colorless Urine Appearance Clear (Clear) Urine pH 7.5 (5.0-8.0) Ur Specific [place] 1.007 (1.001-1.035) Urine Protein Negative (Negative) Urine Glucose (UA) Negative (Negative) Urine Ketones Negative (Negative) Urine Blood Moderate H (Negative) Urine Nitrite Negative (Negative) Urine Bilirubin Negative (Negative) Urine Urobilinogen <2.0 (<2.0) mg/dL Ur Leukocyte Esterase Negative (Negative) Urine RBC <1 (0-5) /hpf Urine WBC <1 (0-5) /hpf Ur Squamous Epith Cells <1 (0-4) /hpf Disposition Clinical Impression: Abdominal pain, Nausea & vomiting Disposition: HOME SELF-CARE Condition: Stable Instructions (If sedation given, give patient instructions): Abdominal Pain (ED) Additional Instructions: Please return to the Emergency Department if symptoms worsen or any other concerns. Prescriptions: Ibuprofen [Motrin] 600 mg PO Q8HR PRN #20 tab PRN Reason: Pain Ondansetron Odt [Zofran Odt] 4 mg PO Q8HR PRN #10 tab PRN Reason: Nausea Is patient prescribed a controlled substance at d/c from ED?: No Referrals: John Benson MD [Primary Care Provider] - 1-2 days Time of Disposition: 11:03
[2022-06-19] MEDS ORDERED: ACET/COD 300 MG/30 MG STARTER PACK 6 TAB BTL PO STA (11:03)
[2022-06-19 11:22] VITALS: BP 142/71; PULSE 70; TEMP 97.2
== END 2022-06-19 11:25 | disposition home or self-care (01) ==
LOC: EC 08:27
DX: R10.9 Unspecified abdominal pain (principal); R11.2 Nausea with vomiting, unspecified; N83.209 Unspecified ovarian cyst, unspecified side; D72.829 Elevated white blood cell count, unspecified; I10 Essential (primary) hypertension; F17.200 Nicotine dependence, unspecified, uncomplicated; F12.90 Cannabis use, unspecified, uncomplicated; Z79.899 Other long term (current) drug therapy
CPT/HCPCS: 99285; 96374; 96375 ×4; 96361 ×3; 36415; 80053; 83690; 85025; 81001; 74176; J1200; J2765; J1885; J1170; J1790